=== PATIENT | female | born 1970 | race Two or more races ===

== ENCOUNTER 2021-05-07 20:20 | Emergency (ER) | payer MEDICAID, OTHER ==
[~2021-05-07] VITALS: Ht 154.9 cm; Wt 81.6 kg
[2021-05-07 22:04] VITALS: BP 177/102
== END 2021-05-07 23:06 | disposition home or self-care (01) ==
LOC: ER 20:23
DX: S33.5XXA Sprain of ligaments of lumbar spine, initial encounter (principal); M54.16 Radiculopathy, lumbar region; X58.XXXA Exposure to other specified factors, initial encounter; Y93.89 Activity, other specified; Y92.89 Other specified places as the place of occurrence of the external cause; Y99.8 Other external cause status

== ENCOUNTER → 2023-04-18 | Outpatient (CLI) | payer MEDICAID | END | disposition home or self-care (01) | LOC: Rad HDHVI 08:42 | PROVIDERS: ATTEND Internal Medicine Cardiovascular Disease | DX: Z01.818 Encounter for other preprocedural examination (principal); I34.0 Nonrheumatic mitral (valve) insufficiency; R94.31 Abnormal electrocardiogram [ECG] [EKG] | CPT/HCPCS: 93306 ==

== ENCOUNTER → 2023-04-20 | Outpatient (CLI) | payer MEDICAID ==
[~2023-04-20] VITALS: Ht 154.9 cm; Wt 64.0 kg
== END | disposition home or self-care (01) ==
LOC: Rad HDHVI 08:28
PROVIDERS: ATTEND Internal Medicine Cardiovascular Disease
DX: Z01.810 Encounter for preprocedural cardiovascular examination (principal); R94.31 Abnormal electrocardiogram [ECG] [EKG]; R07.89 Other chest pain; I10 Essential (primary) hypertension; Z82.49 Family history of ischemic heart disease and other diseases of the circulatory system
CPT/HCPCS: 78452; 93017; 96374; A9500